=== PATIENT | male | born 1945 | race Caucasian/White ===

== ENCOUNTER 2018-03-11 09:55 | Day surgery (SDC) | payer OTHER, BC ==
[~2018-03-11] VITALS: Ht 170.2 cm; Wt 61.2 kg
[~2018-03-11 09:55] MED LIST: FIBERCON625 MG PO; HYZAAR 50-121 TABLET PO; LIPITOR20 MG PO; LO-DOSE ASPIRIN81 M1 PO; ONE DAILY FOR1 EACH PO
[2018-03-11 10:49] VITALS: BP 154/72
[2018-03-11 14:20] VITALS: BP 166/74
[2018-03-11 14:57] VITALS: BP 160/70
== END 2018-03-11 15:01 | disposition home or self-care (01) ==
LOC: SDC 09:55
DX: H35.341 Macular cyst, hole, or pseudohole, right eye (principal); I10 Essential (primary) hypertension; E78.5 Hyperlipidemia, unspecified; Z79.82 Long term (current) use of aspirin
CPT/HCPCS: J0690; J0713